=== PATIENT | male | born 1950 | race Caucasian/White ===

== ENCOUNTER → 2022-11-23 | Outpatient (CLI) | payer MEDICARE | LOC: PET 08:45 | PROVIDERS: ATTEND Internal Medicine Hematology & Oncology | DX: C90.00 Multiple myeloma not having achieved remission (principal); J98.4 Other disorders of lung | CPT/HCPCS: 78816; A9552 ==

== ENCOUNTER → 2022-11-27 | Day surgery (SDC) | payer MEDICARE ==
[2022-11-24 11:38] VITALS: BMI 28.6
[2022-11-27 08:43] LABS: #Basophils 0.1 thou/uL (0.0-0.2); #Eosinphils 0.1 thou/uL (0.0-0.7); #Lymphocytes 1.8 thou/uL (1.20-3.40); #Monocytes 1.3 thou/uL (0.11-0.59); %Basophils 0.6 % (0.0-1.0); %Eosinophils 1.3 % (0.0-10.0); %Lymphocytes 17.4 % (21.0-51.0); %Monocytes 12.9 % (0.0-10.0); %Neutrophils 67.8 % (42.0-75.0); Hemoglobin 12.4 g/dL (14.0-18.0); Mean Corpuscular HGB CONC 31.1 g/dL (32.0-36.0); Mean Corpuscular Hemoglobin 33.5 pg (27.0-31.0); Mean Platelet Volume 6.7 fL (7.4-10.4); Platelet Count 303 10x3/uL (130-400); RBC Distribution Width 12.2 % (11.5-14.5); White Blood Cell (WBC) Count 10.4 10x3/uL (4.8-10.8)
[2022-11-27 08:47] LABS: PTT 31.9 sec (22.9-36.1)
[2022-11-27 09:14] VITALS: BP 120/76; TEMP 99.2
== END | disposition home or self-care (01) ==
LOC: CT 08:32
PROVIDERS: ATTEND Internal Medicine Hematology & Oncology
PROC: 079T3ZX Drainage of Bone Marrow, Percutaneous Approach, Diagnostic (ICD-10-PCS; principal; 2022-11-27)
DX: C90.00 Multiple myeloma not having achieved remission (principal); D63.0 Anemia in neoplastic disease; I10 Essential (primary) hypertension; E78.5 Hyperlipidemia, unspecified; J45.909 Unspecified asthma, uncomplicated; E03.9 Hypothyroidism, unspecified; Z87.891 Personal history of nicotine dependence; Z79.890 Hormone replacement therapy; Z79.899 Other long term (current) drug therapy; Z88.5 Allergy status to narcotic agent
CPT/HCPCS: 20225; 77012; 83883; 84166; 85025; 85097; 85610; 85730; 86335; 88184; 88185; 88237; 88264; 88280; 88305; 88311; 88342; 88365